=== PATIENT | male | born 1965 | race Caucasian/White ===

== ENCOUNTER → 2018-04-27 13:05 | Outpatient (CLI) | payer OTHER, SELFPAY ==
[2018-04-27 13:38] LABS: Hematocrit 41.9 % (41-53); Hemoglobin 14.8 g/dL (13.5-17.5); Mean Corpuscular HGB Conc 35.2 % (30-36); Mean Corpuscular Hemoglobin 30.5 PG (26-34); Mean Corpuscular Volume 86.6 fL (80-100); Platelet Count 217 X10^3/uL (150-400); Red Blood Cell Count 4.84 X10^6/uL (4.5-5.9); Red Cell Distribution Width 13.4 % (11.6-14.8); White Blood Cell Count 6.1 X10^3/uL (4.5-11.0)
[2018-04-27 14:35] LABS: BUN Creatinine Ratio 24.3 (6-22); Blood Urea Nitrogen 17 mg/dL (9-20); Calcium 9.5 mg/dL (8.4-10.2); Carbon Dioxide 24 mmol/L (22-32); Chloride 98 mmol/L (98-107); Estimated Glomerular Filt Rate > 60.0 mL/min (>60); Glucose 301 mg/dL (70-100); HEMOLYSIS < 15 (0-50); Potassium 4.3 mmol/L (3.4-5.1); Sodium 135 mmol/L (137-145)
== END ==
PROVIDERS: Family Provider Chiropractor; Visit Provider Orthopaedic Surgery
DX: Z01.818 Encounter for other preprocedural examination (principal)
CPT/HCPCS: 36415; 80048; 85027; 93005; 93010

== ENCOUNTER → 2018-06-22 08:42 | Outpatient (CLI) | payer OTHER, BC, SELFPAY ==
--- NOTE | 2018-06-22 | DI.ECHO.S_ITS ---
[facility] +---------+ : : [address] [address] : : : : [id number] : : : : Phone: [phone]---------+ Echocardiogram Report + + :Name: ZOEY KINNEY Study Date: 06/22/2018 Height: 69 in : :[facility] Weight: 256 lb : : Gender: Male BSA: 2.3 m2 : :: 1965 Age: 53 yrs BP: 138/68 mmHg: :Reason For Study: Abnormal ECG : : Performed By: Alfreda Paulson : :Referring: RAND RUIZ : + + Interpretation Summary The left ventricle is normal in size. The ejection fraction is estimated to be 60-65%. The right ventricle is normal size. The right ventricular systolic function is normal. No significant valvular pathology seen. Procedure: A two-dimensional transthoracic echocardiogram with color flow and Doppler was performed. The study quality was technically adequate. There is no prior echocardiogram noted for this patient. The patient was in normal sinus rhythm during the exam. Left Ventricle: The left ventricle is normal in size. There is normal left ventricular wall thickness. There is no thrombus. The ejection fraction is estimated to be 60-65%. There are no focal wall motion abnormalities. MV E/A: 1.1 Med Peak E' Regulo: 6.5 cm/sec E/E' med: 13.8. Right Ventricle: The right ventricle is normal size. The right ventricular systolic function is normal. Atria: The left atrium is moderately dilated. The right atrium is mildly dilated. The interatrial septum is intact with no evidence for an atrial septal defect. Mitral Valve: The mitral valve is normal in structure and function. There is trace mitral regurgitation. Aortic Valve: The aortic valve is trileaflet. The aortic valve opens well. There is no aortic valve stenosis. No aortic regurgitation is present. Tricuspid Valve: The tricuspid valve is normal in structure and function. The right ventricular systolic pressure is estimated to be at least 33 mmHg based on an estimated right atrial pressure of 3 mm Hg. There is trace tricuspid regurgitation. Pulmonic Valve: The pulmonic valve is not well seen, but is grossly normal. There is no pulmonic valvular regurgitation. Great Vessels: The aortic root is normal size. The dimensions of the ascending aorta are normal. The aortic arch is normal in size. The IVC is of normal diameter and collapses greater than 50% with a sniff. This suggests a low right atrial pressure of 3 mm Hg. Pericardium/ Pleura There is no pericardial effusion. There is no pleural effusion. MMode/2D Measurements & Calculations LVIDd: 5.3 cm Ao root diam: 3.0 cm LVIDs: 3.3 cm Aortic Jxn: 2.7 cm FS: 38.0 % asc Aorta Diam: 3.3 cm IVSd: 1.0 cm Ao Arch Diam (Prox Trans): 3.0 cm LVPWd: 0.87 cm LV sanchez. diameter/BSA (cm/m^2): 2.3 LV sys. diameter/BSA (cm/m^2): 1.4 LA dimension: 5.1 cm RA long axis: 5.5 cm LA A2 area: 28.0 cm2 RA area: 23.8 cm2 LA A4 area: 27.8 cm2 RA vol: 87.2 ml LA length (vol): 6.3 cm RA : 38.0 ml/m2 LA vol: 104.5 ml IVC diam: 1.8 cm LA vol index: 45.5 ml/m2 RVDd major: 5.5 cm RVD1 (basal): 3.1 cm RVD2 (mid): 2.8 cm Doppler Measurements & Calculations Ao V2 max: 178.6 cm/sec MV E max regulo: 90.1 cm/sec Ao V2 mean: 125.0 cm/sec MV A max regulo: 85.2 cm/sec Ao max P.8 mmHg MV E/A: 1.1 Ao mean P.0 mmHg Med Peak E' Regulo: 6.5 cm/sec Ao V2 VTI: 44.4 cm E/E' med: 13.8 Lat Peak E' Regulo: 9.2 cm/sec E/E' lat: 9.8 E/e' average: 11.8 MV dec time: 0.24 sec MV P1/2t: 57.1 msec TR max regulo: 273.6 cm/sec MV P1/2t max regulo: 99.0 cm/sec TR max P.0 mmHg MVA(P1/2t): 3.9 cm2 PA V2 max: 108.3 cm/sec PA V2 mean: 71.1 cm/sec PA mean P.3 mmHg Reading Physician:TED
== END ==
PROVIDERS: Family Provider Preventive Medicine Occupational Medicine; PCP Student in an Organized Health Care Education/Training Program; Visit Provider Student in an Organized Health Care Education/Training Program
DX: R94.31 Abnormal electrocardiogram [ECG] [EKG] (principal)
CPT/HCPCS: 93306

== ENCOUNTER 2018-09-29 10:45 | Day surgery (SDC) | payer OTHER, SELFPAY ==
[2018-09-16 15:08] VITALS: BMI 38.7
[2018-09-29] VITALS (8 sets, daily range): BP systolic 112–154; BP diastolic 62–83; PULSE 59–67; RESP 10–112; TEMP 36.2–36.8; O2SAT 6–99; BMI 38.6
--- NOTE | 2018-09-29 | DI.RAD.S_ITS ---
PROCEDURE: XR LUMBAR SPINE 2-3V INDICATIONS: L4-5 LAMINECTOMY TECHNIQUE: 2 views of the lumbar spine were acquired. COMPARISON: [facility], , L-SPINE 2-3 VIEWS, 06/09/2015, 17:05. FINDINGS: Spot fluoroscopic intraoperative images demonstrating surgical instruments projecting in the posterior paraspinal soft tissues at the level of L4-L5. Dictated by: Stalin Triplett M.D. on 09/29/2018 at 14:43 Approved by: Stalin Triplett M.D. on 09/29/2018 at 14:43
[2018-09-29] MEDS: LACTATED RINGERS 1,000 ML 42 ML IV (11:38)
--- NOTE | 2018-09-29 12:20 | PM.PREOP ---
Pre-operative Note Interval Note History & Physical reviewed/Exam performed by Physician: Yes Changes to H&P: No
[2018-09-29] MEDS: CEFAZOLIN 2 GM/100 ML FROZ.PIGGY IV (13:29)
[2018-09-29] MEDS: THROMBIN (RECOMBINANT) 5,000 UNIT VIAL 5000 UNIT TOP (13:56)
[2018-09-29] MEDS: SODIUM CHLORIDE 0.9% 1,000 ML, GENTAMICIN 80 MG IRR (13:57)
[2018-09-29] MEDS: VANCOMYCIN 1,000 MG VIAL 1000 MG TOP (13:57)
[2018-09-29] MEDS: BUPIVACAINE 0.25% (PF) 8 ML, fentaNYL 100 MCG INJ (14:01)
--- NOTE | 2018-09-29 14:05 | SUR.OPER ---
Prone on spine table, head in foam head support, padded chest and pelvic supports, gel pad at knees, lower legs supported by pillows; nipples, genitalia and toes free of pressure, arms secured on foam padded arm boards at <90 degrees abduction. Tape over blanket at thigh secured to table.
--- NOTE | 2018-09-29 14:55 | PM.OP.1 ---
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 They had failed conservative management and requested operative intervention. Risks and benefits of surgery were discussed and appropriate consents were obtained. Surgeon: Indio Canales [employer] Technician: Francine Cortes Anesthesia Type: General Operative Notes Findings: None Closure Type: primary Specimen(s): none sent Estimated Blood Loss (mL): 10 Procedure in detail: Patient was brought to the operating room and intubated on the table. A time-out was performed. There were rolled over the well-padded prone position on the Myles table. The back was prepped and draped in standard sterile fashion. Preoperative antibiotics were given. Using fluoroscopy, a 3 cm incision was made to the left of the midline at the well-marked L4-5 level. We used Bovie to come down to and split the fascia. We then used the NuVasive MaXcess dilators with fluoroscopy and then opened our retractors. The soft tissue was cleared off with Bovie, a marker was placed, an x-ray was taken to confirm positioning. We then brought in the microscope. A combination of high-speed bur and Kerrison were used to perform a left-sided hemilaminotomy and hemifacetectomy. We carefully retracted the dura and exposed the disc. The dura and the traversing nerve root were well adhesed down to the disc and this took extensive dissection to be able to finally free it up and mobilize them. The disc was cleared with bipolar. A scalpel used to perform an annulotomy and a pituitary was used to perform the diskectomy. The ball probe was swept underneath the dura along the disc to make sure there were no further loose fragments. This was also placed into the disc and moved around to make sure there were no further loose fragments. The large protruding portion of the disc was completely removed but there was still some broad-based disc bulging with osteophytes below this that could not change. Once everything was adequately decompressed, the wound was copiously irrigated. An epidural catheter was filled with 100 mcg of fentanyl and 8 mL of 0.25% Marcaine. The dura was carefully depressed under the laminotomy site and the catheter was advanced 6 cm cephalad. The retractor was removed and the fascia was closed. The epidural catheter was then injected without resistance and removed. Vancomycin powder was placed in the wound. Superficial and skin were closed. Sterile dressing was placed. The patient was then rolled over, transferred to the stretcher, and brought to recovery room without complications. Complications: none Condition: stable Disposition: PACU Plan for aftercare: Outpatient. Limited activity for 2 weeks then begin physical therapy as tolerated.
[2018-09-29] MEDS: TRAMADOL 50 MG TABLET PO (15:55)
--- NOTE | 2018-09-29 16:17 | SUR.PHASEII ---
Dr. Canales notified pt c/o 5-09/21 back pain, vvo for 50mg tramadol. Pt medicated. Continuous pulse ox placed.
== END 2018-09-29 16:38 | disposition home or self-care (01) ==
PROVIDERS: Family Provider Preventive Medicine Occupational Medicine; PCP Student in an Organized Health Care Education/Training Program; Visit Provider Orthopaedic Surgery
PROC: (CPT 63030; principal; 2018-09-29 12:15)
DX: M51.16 Intervertebral disc disorders with radiculopathy, lumbar region (principal); I10 Essential (primary) hypertension; E11.9 Type 2 diabetes mellitus without complications; E78.5 Hyperlipidemia, unspecified; Z79.84 Long term (current) use of oral hypoglycemic drugs
CPT/HCPCS: 63030; 72100; 76000; J0690; J2405; J2704; J3010